=== PATIENT | male | born 1990 | race Caucasian/White ===

== ENCOUNTER 2024-01-21 16:29 | Emergency (ER) | payer OTHER, SELFPAY ==
--- NOTE | 2024-01-21 16:36 | ED.GENADULT ---
HPI - General Adult General Chief complaint: Upper Respiratory Symptoms Stated complaint: difficulty breathing, headache, fever Time Seen by Provider: 01/21/24 16:47 Source: patient Mode of arrival: ambulatory Limitations: no limitations History of Present Illness HPI narrative: Patient is an otherwise healthy, 33 yo male presenting with a one day history of a cough, body aches, and a fever. Patient presents with his 11 son who is experiencing similar flu-like symptoms and states that he has another child at home who recently tested positive for influenza. MD complaint: Flu-like symptoms Onset (ago): day(s) (1) Severity: mild Severity scale (1-10): 2 Relieving factors: none Exacerbating factors: none Associated symptoms: cough and fever/chills Treatments prior to arrival: none Related Data Previous Rx's Medication Instructions Recorded albuterol sulfate 90 mcg/actuation 1 inh inhalation QID PRN shortness 01/21/24 aerosol inhaler of breath or wheezing #8.5 grams oseltamivir 75 mg capsule (Tamiflu) 75 mg PO DAILY 5 days #5 caps 01/21/24 Allergies Allergy/AdvReac Type Severity Reaction Status Date / Time No Known Allergies Allergy Verified 01/21/24 16:36 [No Known Allergies*] Review of Systems Constitutional: Constitutional: Reports no additional constitutional complaints, Reports body ache(s), Denies chills, Reports fever(s) and Denies night sweats Eyes: Eyes: Reports no additional eye complaints, Denies blurry vision, Denies change in vision, Denies diplopia, Denies eye discharge, Denies loss of vision and Denies eye pain ENT: Denies dizziness Cardiovascular: Cardiovascular: Reports no additional cardiovascular complaints, Denies chest pain, Denies lightheadedness, Denies Loss of Consciousness and Denies dyspnea Respiratory: Respiratory: Reports no additional respiratory complaints, Reports cough and Denies dyspnea Gastrointestinal: Gastrointestinal: Reports no additional gastrointestinal complaints, Denies abdominal pain, Denies melena, Denies hematochezia, Denies change in bowel habits and Denies change in stool character Genitourinary: Genitourinary: Reports no additional male genitourinary complaints, Denies hematuria, Denies oliguria, Denies difficulty urinating, Denies dysuria, Denies urinary frequency, Denies urinary hesitancy, Denies urinary incontinence and Denies urinary urgency Musculoskeletal: Musculoskeletal: Reports no additional musculoskeletal complaints, Denies numbness and Denies tingling Neurologic: Denies dizziness, Denies loss of vision, Denies numbness and Denies tingling Psychiatric: Psychiatric: Reports no additional psychiatric complaints Endocrine: Endocrine: Reports no additional endocrine complaints Hematologic/Lymphatic: Hematologic/Lymphatic: Reports no additional hematologic/lymphatic complaints Allergic/Immunologic: Allergic/Immunologic: Reports no additional allergic/immunologic complaints PMFSH Past Medical History Attestation statement: The following information was validated with the patient. Source: old records reviewed and nursing notes reviewed Social History Social History Advance Directives: No Advance Directives Information Provided: No Physical Exam ED Vital Signs: Vital Signs - 24 hr 01/21/24 16:37 01/21/24 17:04 Temperature 99.7 F Pulse Rate 100 67 Respiratory Rate 16 16 Blood Pressure 145/62 H Pulse Oximetry 91 L Oxygen Delivery Method Room Air BMI result Body Mass Index 45.7 Const General: cooperative, no acute distress, alert and awake Nutritional Appearance: well nourished Orientation/consciousness: patient oriented x3 Limitations: no limitations HENMT Head: Yes normal to inspection and Yes atraumatic Ears: hearing grossly normal bilaterally and external ears normal General nose exam: Normal external nose present, no nasal discharge noted and no epistaxis Face and sinus: Yes normal facial exam, No abrasion and No laceration Mouth: Normal oral and palatal mucosa present, no drooling and no muffled voice Eyes General: appearance normal, both eyes and all related structures Periorbital: periorbital findings normal Eyelids: Yes eyelids normal Conjunctivae: conjunctivae normal Pupils: Equal, round and reactive pupils present EOM: EOMs intact bilaterally Neck Neck: Yes normal visual inspection, Yes full ROM and Yes no lymphadenopathy Chest Chest palpation & inspection: normal inspection of the chest Resp Effort & Inspection: normal respiratory effort and able to speak in complete sentences Auscultation: diminished lung sounds bilateral in the lower lung bishop GI Inspection: Yes normal to inspection Neuro General: patient oriented x3 and moves all extremities Cranial nerves: Yes Equal, round and reactive pupils present Cognition (Neuro): normal cognition Motor exam (neuro): 5/5 motor strength present throughout Sensory Exam: Normal double simultaneous stimulation for sensation Coordination: [id number] test normal Extrem General: Yes normal to inspection, Yes full ROM and Yes capillary refill normal Psych Appearance: grossly normal Mental Status: mental status grossly normal Affect: normal affect Attitude: cooperative Thought process: Normal thought process present Thought content: Normal thought content present Insight: Good insight present (Psych) Course Course Course Narrative: This is a rapid medical exam: Additional HPI, ROS, PE not included below will be deferred to primary provider. Patient is a 33-year-old male with history of asthma presenting to the emergency department with complaint of fever, body aches, chest pain, shortness of breath since last night. Children are sick with the flu at home. O2 sat 93% in triage. Plan: EKG, viral swabs Medications Administered Discontinued Medications Generic Name Dose Route Start Last Admin Trade Name Freq PRN Reason Stop Dose Admin Albuterol/Ipratropium 3 ml 01/21/24 17:01 01/21/24 17:04 Albuterol/Iprat 2.5/0.5mg 3 Ml Ampul.Neb INHALE 01/21/24 17:02 3 ml ONCE ONE Administration Methylprednisolone Sodium Succinate 60 mg 01/21/24 16:48 01/21/24 17:06 Methylprednisolone Sod Succ 125 Mg/2 Ml Vial IM 01/21/24 16:49 60 mg ONCE ONE Administration Medical Decision Making Medical Decision Making [facility] Narrative: Patient is a 33 year old assigned male at with no reported medical history presenting to the emergency department today with body aches, cough, and fever. Patient's physical exam showed minimally diminished bilateral breath sounds but was otherwise unremarkable. Patient's COVID-19 and RSV tests were negative. Patient's influenza test was positive. I explained my physical exam findings as well as all test results to the patient. I answered all questions asked by the patient. I stressed the importance of the patient taking his medication as prescribed. I stressed the importance of the patient following up with his primary care provider. I stressed the importance of the patient returning to the emergency department immediately if his symptoms were to worsen or if he were to develop any dizziness, shortness of breath, difficulty breathing, chest pain, blurry vision, loss of vision, nausea, vomiting, abdominal pain, fever, chills, back pain, or any other complaints. Patient verbalized agreement and understanding with this treatment plan and discharge. Differential Diagnosis Differential Diagnoses: The differential diagnosis associated with the presentation includes Influenza COVID-19 RSV Viral illness Admission/Observation Consideration of admission/observation: Escalation of care including admission/observation considered Patient would have been admitted to the hospital had his work up had any findings where hospital admission was appropriate and his clinical presentation warranted hospital admission. Lab Data [facility] Lab Attestation statement: I reviewed the patient's lab results. My interpretation of these results are in the [facility] Rationale portion of this note. Labs: Lab Results 01/21/24 Range/Units 16:57 Influenza Type A (PCR) POSITIVE A (Negative) Influenza Type B (PCR) NEGATIVE (Negative) RSV RNA Qual (PCR) NEGATIVE (Negative) SARS-CoV-2 RNA (RT-PCR) NEGATIVE (Negative) Prescription Management I considered prescription management with: Antiviral (patient prescribed tamiflu) Discharge Plan Discharge Clinical Impression: Influenza Patient Disposition: Home, Self-Care Instructions: Influenza (DC) Additional Instructions: Follow up with your primary care provider. Return to the emergency department immediately if your symptoms worsen or if you develop any dizziness, shortness of breath, difficulty breathing, chest pain, blurry vision, loss of vision, nausea, vomiting, abdominal pain, fever, chills, back pain, or any other complaints. Prateek un seguimiento con meier proveedor de atenci?n primaria. Regrese al departamento de emergencias inmediatamente si vijay s?ntomas empeoran o si presenta mareos, dificultad para respirar, dificultad para respirar, dolor en el pecho, visi?n borrosa, p?rdida de la visi?n, n?useas, v?mitos, dolor abdominal, fiebre, escalofr?os, dolor de espalda o cualquier otras quejas. Prescriptions: New oseltamivir [Tamiflu] 75 mg capsule 75 mg PO DAILY 5 Days Qty: 5 0RF albuterol sulfate 90 mcg/actuation HFA aerosol inhaler 1 inh inhalation QID PRN (Reason: shortness of breath or wheezing) Qty: 8.5 0RF Referrals: [facility] [place]] (Call to establish and follow up with a primary care provider. If you already have a primary care provider, please follow up with them. Llame para establecer y realizar un seguimiento con un proveedor de atenci?n primaria. Si ya tiene un proveedor de atenci?n primaria, prateek un seguimiento con ?l.) [facility] [place]] (Call to establish and follow up with a primary care provider. If you already have a primary care provider, please follow up with them. Llame para establecer y realizar un seguimiento con un proveedor de atenci?n primaria. Si ya tiene un proveedor de atenci?n primaria, prateek un seguimiento con ?l.) [facility] [place]] (Call to establish and follow up with a primary care provider. If you already have a primary care provider, please follow up with them. Llame para establecer y realizar un seguimiento con un proveedor de atenci?n primaria. Si ya tiene un proveedor de atenci?n primaria, prateek un seguimiento con ?l.) Stand Alone Forms: Work/School Release Interventions: ED Discharge Assessment Last Done: 01/21/24 18:44 Discharge Date/Time: 01/21/24 18:44 Print Language: Maori
[2024-01-21 16:37] VITALS: BP 145/62; PULSE 100; RESP 16; TEMP 37.6; O2SAT 91; BMI 45.7
--- NOTE | 2024-01-21 16:38 | ECG_ITS ---
Test Reason : CP Blood Pressure : / mmHG Vent. Rate : 100 BPM Atrial Rate : 100 BPM P-R Int : 136 ms QRS Dur : 094 ms QT Int : 322 ms P-R-T Axes : 051 027 063 degrees QTc Int : 415 ms Normal sinus rhythm Normal ECG No previous ECGs available Referred By: Tati Camacho Electronically Signed By:JC WAGNER
[2024-01-21 17:04] VITALS: PULSE 67; RESP 16; O2SAT 96
[2024-01-21] MEDS: Albuterol/Iprat 2.5/0.5MG 3 ML AMPUL.NEB INHALE (17:04)
[2024-01-21] MEDS: methylPREDNISolone Sod Succ 125 MG/2 ML VIAL 60 MG IM (17:06)
[2024-01-21 17:45] LABS: Influenza A PCR POSITIVE (Negative); Influenza B PCR NEGATIVE (Negative); Resp Syncy Virus RNA Qual PCR NEGATIVE (Negative); SARS COV2 PCR INHOUSE NEGATIVE (Negative)
== END 2024-01-21 18:44 | disposition home or self-care (01) ==
PROVIDERS: Registered Nurse Emergency; Emergency Provider Emergency Medicine Emergency Medical Services
DX: J11.1 Influenza due to unidentified influenza virus with other respiratory manifestations (principal); Z11.52 Encounter for screening for COVID-19; Z20.828 Contact with and (suspected) exposure to other viral communicable diseases
CPT/HCPCS: 0241U; 93005; 94640; 96372; 99284; J2930

== ENCOUNTER → 2024-01-21 16:38 | Outpatient (BNV) | payer OTHER, SELFPAY | PROVIDERS: Emergency Provider Emergency Medicine Emergency Medical Services; Visit Provider Internal Medicine | DX: R07.9 Chest pain, unspecified (principal) | CPT/HCPCS: 93010 ==

== ENCOUNTER 2025-10-23 21:17 | Emergency (ER) | payer SELFPAY ==
[2025-10-23 21:19] VITALS: BP 119/58; PULSE 95; RESP 18; TEMP 36.8; O2SAT 96; BMI 33.2
[2025-10-23 22:10] LABS: IDNOW Serial# 58CA691E; Strep A Nucleic Acid Positive (Negative)
[2025-10-23 22:17] LABS: COVID-19 Test Negative (Negative); IDNOW Serial# 6674DD1D
[2025-10-23 22:24] LABS: IDNOW Serial# 55D5AD1C; Influenza B2 Negative (Negative)
--- NOTE | 2025-10-24 00:32 | ED.GENADULT ---
HPI - General Adult General Chief complaint: Ear Problems Stated complaint: Fever Body Aches Time Seen by Provider: 10/24/25 00:24 Source: patient Mode of arrival: ambulatory Limitations: no limitations History of Present Illness ED Provider: Dr. Deanne Onofre HPI narrative: Patient comes to the emergency room complaining of sore throat that started a few hours ago. Patient denies any fever or chills to his knowledge. Patient complaining of mild left ear pain, denies any trouble hearing. Denies any dental pain. Patient states that he is not taking any pain medication at all, including Tylenol or Motrin. Related Data Previous Rx's ?Medication ?Instructions ?Recorded albuterol sulfate 90 mcg/actuation 1 inh inhalation QID PRN shortness 01/21/24 aerosol inhaler of breath or wheezing #8.5 grams oseltamivir 75 mg capsule (Tamiflu) 75 mg PO DAILY 5 days #5 caps 01/21/24 amoxicillin 500 mg-potassium 1 tab PO TID 10 days #30 tabs 10/24/25 clavulanate 125 mg tablet (Augmentin) ibuprofen 600 mg tablet 600 mg PO Q8H PRN fever or pain 10/24/25 #30 tabs Allergies Allergy/AdvReac Type Severity Reaction Status Date / Time No Known Allergies (No Known Allergy Verified 10/23/25 21:24 Allergies*) Review of Systems Review of Systems: Constitutional : No Weight loss, No Fever, No Chills, No Night Sweats, complaining of fatigue and generalized malaise ENT/Mouth : Complaining of left-sided ear discomfort, No Hearing loss, No Ear Pain, No Nasal Congestion, No Sinus Pain, No Hoarseness, complaining of sore throat, No Rhinorrhea, No Swallowing Difficulty Eyes: No Eye Pain, No Swelling, No Redness, No Foreign Body, No Discharge, No Vision Changes Cardiovascular : No Chest Pain, No SOB, No Dyspnea on Exertion, No Orthopnea, No Edema, No Palpitations Respiratory : No Cough, No Sputum, No Wheezing, No Smoke Exposure, No Dyspnea Gastrointestinal : No Nausea, No Vomiting, No Diarrhea, No Constipation, No abdominal Pain, No Hematochezia, No Melena Genitourinary : no irregular bleeding, No Dysuria, No Urinary Frequency, No Hematuria, No Urinary Incontinence, No Urgency, No Flank Pain, No Urinary Flow Changes, No Hesitancy Musculoskeletal : No joint pain, No Myalgias, No Joint Swelling Skin : No Skin Lesions, No rash Neuro : No Weakness, No Numbness, No Paresthesias, No Loss of Consciousness, No Dizziness, No Headache Psych : No Anxiety/Panic, No Depression, No SI/HI/AH/VH, No Social Issues, Heme/Lymph: No Bruising, No Bleeding,No Lymphadenopathy Endocrine : No Polyuria, No Polydipsia, No Temperature Intolerance [facility] Social History Social History Advance Directives: No Advance Directives Information Provided: No Physical Exam ED Exam Exam: Appearance: Alert. Oriented X3. No acute distress. Eyes: Pupils equal, round and reactive to light. ENT: Normal oral mucosa, normal tone, midline uvula, no abscesses visualized. However, there exudates on the tonsils bilaterally, normal size, airway not obstructed, no palatine phlegmon visualized Neck: Normal inspection. Neck supple. No lymph nodes noted. No crepitus CVS: Normal heart rate and rhythm. Pulses normal. Normal S1 and S2 Respiratory: No respiratory distress. Breath sounds normal. No Wheezing. No rales Abdomen: Soft and nontender. No rigidity. No distention. Skin: Skin warm and dry. Normal skin color. Normal skin turgor. Extremities: No lower extremity edema. No Lacerations. No Rash Neuro: Oriented X 3. No motor deficit. No sensory deficit. Moving all extremities. No slurred speech. CN 2 through 12 grossly intact Psych: calm, cooperative, normal affect Vital Signs: Vital Signs - 24 hr 10/23/25 21:19 Temperature 98.2 F Pulse Rate 95 Respiratory Rate 18 Blood Pressure 119/58 L Pulse Oximetry 96 Oxygen Delivery Method Room Air BMI result Body Mass Index 33.2 Medications Administered Discontinued Medications Generic Name Dose Route Start Last Admin Trade Name Freq PRN Reason Stop Dose Admin Amoxicillin/Clavulanate Potassium 875 mg 10/24/25 00:30 10/24/25 00:36 Amoxicillin/Potassium Clav 875 Mg Tablet PO 10/24/25 00:31 875 mg ONCE ONE Administration Ibuprofen 600 mg 10/24/25 00:30 10/24/25 00:36 Ibuprofen 600 Mg Tablet PO 10/24/25 00:31 600 mg ONCE ONE Administration Medical Decision Making Medical Decision Making [facility] Narrative: My interpretation of labs: Patient tested positive for strep. Patient was given the 1st dose of Augmentin and ibuprofen here in the emergency room. Lab Data [facility] Lab Attestation statement: I reviewed the patient's lab results. Labs: Lab Results 10/23/25 Range/Units 21:52 COVID-19 (ANAT) Negative (Negative) COVID-19 Clin Com See Note Influenza Type A (KATIE) Negative (Negative) Influenza Type B (KATIE) Negative (Negative) Influenza A & B Note See Note S. pyogenes GrpA KATIE Positive A (Negative) Discharge Plan Discharge Clinical Impression: Acute streptococcal pharyngitis Patient Disposition: Home, Self-Care Instructions: Strep Throat (ED) Additional Instructions: Please follow-up with your primary care physician tomorrow. If you have any worsening or new symptoms, please return to the emergency room or call 911 Prescriptions: New amoxicillin-pot clavulanate [Augmentin] 500-125 mg tablet 1 tab PO TID 10 Days Qty: 30 0RF ibuprofen 600 mg tablet 600 mg PO Q8H PRN (Reason: fever or pain) Qty: 30 0RF No Action oseltamivir [Tamiflu] 75 mg capsule 75 mg PO DAILY 5 Days Qty: 5 0RF albuterol sulfate 90 mcg/actuation HFA aerosol inhaler 1 inh inhalation QID PRN (Reason: shortness of breath or wheezing) Qty: 8.5 0RF Stand Alone Forms: Work/School Release Print Language: Citizen [place]
--- NOTE | 2025-10-24 00:44 | PC.NURSE ---
Provider into assess pt, medicated per mar.
--- NOTE | 2025-10-24 01:00 | PC.NURSE ---
reviewed discharge instructions with pt. pt verbalized understanding, no sign of distress.
[2025-10-24 01:01] VITALS: BP 119/58; PULSE 95; RESP 18; TEMP 36.8; O2SAT 96
== END 2025-10-24 01:02 | disposition home or self-care (01) ==
PROVIDERS: Emergency Provider Emergency Medicine
DX: J02.0 Streptococcal pharyngitis (principal)
CPT/HCPCS: 87502; 87635; 87651; 99283; 99284